=== PATIENT | male | born 1930 | race African-American/Black ===

== ENCOUNTER 2017-10-05 10:21 | Emergency (ER) | payer OTHER ==
[~2017-10-05] VITALS: Ht 177.8 cm; Wt 71.8 kg
--- NOTE | 2017-10-05 10:30 | NUR ---
BIB [facility] FOR WITNESSED SYNCOPAL EPISODE. DENIES ANY HEADACHE, NECK, OR BACK PAIN. PATIENT IS A/O X 2-3. BREATHING EVEN AND UNLABORED. NO SOB. VITALS STABLE, NAD. SAFETY AND COMFORT MEASURES IN PLACE. AWAITING MD ORDERS.
[2017-10-05] MEDS ORDERED: IV NS 0.9% 1,000 ML BAG IV ONE (11:00)
--- NOTE | 2017-10-05 11:00 | NUR ---
[facility] LID FITTER AT BEDSIDE FOR BLOOD DRAW.
[2017-10-05 11:01] LABS: BASOPHILS # (AUTO) 0.1 /CMM (0.0-0.2); BASOPHILS % (AUTO) 1.1 % (0.0-2.0); EOSINOPHILS # (AUTO) 0.2 /CMM (0.0-0.7); EOSINOPHILS % (AUTO) 1.9 % (0.0-6.0); HEMATOCRIT 29 % (39-51); HEMOGLOBIN 10.1 g/dL (13.5-17.5); LYMPHOCYTES # (AUTO) 1.4 /CMM (0.8-4.8); LYMPHOCYTES % (AUTO) 13.6 % (20.0-44.0); MEAN CORPUSCULAR HEMOGLOBIN 33 PG (26.0-33.0); MEAN CORPUSCULAR HGB CONC 36 g/dl (31.0-36.0); MEAN CORPUSCULAR VOLUME 92 fL (80-96); MONOCYTES # (AUTO) 0.4 /CMM (0.1-1.30); MONOCYTES % (AUTO) 3.5 % (2.0-12.0); NEUTROPHILS % (AUTO) 79.9 % (43.0-81.0); PLATELET COUNT (AUTO) 352 /CMM (150-450); RDW COEFFICIENT OF VARIATION 12.2 (11.5-15.0); WHITE BLOOD COUNT (AUTO) 10.1 K/uL (4.3-11.0)
--- NOTE | 2017-10-05 11:03 | NUR ---
PATIENT TAKEN TO CT
--- NOTE | 2017-10-05 11:09 | NUR ---
PATIENT RETURNED FROM CT IN STABLE CONDITION.
[2017-10-05 11:13] LABS: CALCIUM, SERUM 8.9 mg/dL (8.5-10.1); CARBON DIOXIDE 24 mmol/L (21-32); CHLORIDE 103 mmol/L (98-107); CREATININE 1.8 mg/dL (0.6-1.3); GLUCOSE 138 mg/dL (74-106); POTASSIUM 3.9 mmol/L (3.5-5.1); SODIUM SERUM 136 mmol/L (136-145); UREA NITROGEN, BLOOD 35 mg/dL (7-18)
[2017-10-05 11:15] LABS: INR 1.02 (0.85-1.15)
[2017-10-05 11:19] LABS: ALANINE AMINOTRANSFERASE 13 U/L (12-78); ALBUMIN 2.6 g/dL (3.4-5.0); ALKALINE PHOSPHATASE 53 U/L (46-116); ASPARTATE AMINOTRANSFERASE 16 U/L (15-37); BILIRUBIN,DIRECT 0.2 mg/dL (0.0-0.2); BILIRUBIN,TOTAL 0.5 mg/dL (0.2-1.0); TOTAL PROTEIN, SERUM 6.8 g/dL (6.4-8.2)
[2017-10-05 11:21] LABS: TROPONIN I 0.027 ng/mL (0.00-0.056)
[2017-10-05] MEDS ORDERED: ASPI-1169 PO (11:52)
[2017-10-05] MEDS ORDERED: SIMV10TA6 PO (11:52)
[2017-10-05] MEDS ORDERED: LISI2.5T2 PO (11:52)
[2017-10-05] MEDS ORDERED: TAMS-12 PO (11:52)
[2017-10-05] MEDS ORDERED: CHOL100044 PO (11:52)
--- NOTE | 2017-10-05 12:47 | NUR ---
CALLED [facility], PRESENTED PT, AWAITING CALL BACK FROM [facility]
--- NOTE | 2017-10-05 13:45 | NUR ---
RECEIVED CALL FROM [facility], PT ACCEPTED TO [facility] ER BY , NUMBER TO GIVE REPORT IS [phone], [facility] SHOULD ARRIVE HERE BY [phone].
[2017-10-05 14:15] VITALS: BP 113/72
--- NOTE | 2017-10-05 14:20 | NUR ---
REPORT GIVEN TO [facility] WITH PRN FOR TRANSFER TO [facility].
--- NOTE | 2017-10-05 14:30 | NUR ---
REPORT GIVEN TO BASSEM AT [facility] FOR TRANSFER. PATIENT REMAINS STABLE. TRANSFER INSTRUCTIONS PROVIDED, PATIENT VERBALIZES UNDERSTANDING, EMT AT BEDSIDE FOR TRANSFER.
--- NOTE | 2017-10-05 14:40 | NUR ---
PATIENT TRANSFERRED TO [facility] VIA AMBULANCE IN STABLE CONDITION.
== END 2017-10-05 14:40 | disposition short-term general hospital (02) ==
LOC: ER 10:22
DX: R55 Syncope and collapse (principal); Z79.82 Long term (current) use of aspirin
CPT/HCPCS: 36415; 70450; 71045; 80048; 80076; 84484; 85025; 85730; 87081; 93005; 96360; 99285; A4606; J7030; Z7610